=== PATIENT | male | born 1955 | race Caucasian/White ===

== ENCOUNTER 2019-04-29 08:00 | Observation (INO) ==
[2019-04-29] MEDS ORDERED: SODIUM CHLORIDE 0.9% 1,000 ML IV STA ×2 (09:01→09:59)
[2019-04-29 09:08] LABS: Basophils # 0.1 10*3/uL (0.0-0.2); Basophils % 0.8 % (0.0-0.8); Eosinophils # 0.2 10*3/uL (0.0-0.87); Hematocrit 39.3 VOL% (42.0-52.0); Hemoglobin 12.7 GM/DL (14.0-18.0); Immature Granulocytes % 0.3 %; Immature Granulocytes Absolute 0.02 #; Lymphocytes # 1.6 10*3/uL (1.4-4.0); Lymphocytes % 23.9 % (21.2-54.2); Mean Corpuscular HGB Conc 32.3 GM/DL (32-36); Mean Corpuscular Volume 96.8 FL (87-102); Mean Platelet Volume 10.8 FL (9.6-12.0); Monocytes % 8.4 % (1.7-12.7); Neutrophils % 63.6 % (38.7-73.9); Platelet Count 188 T/CUMM (130-400); Red Blood Count 4.06 MC/CUMM (3.8-5.5); Red Cell Distribution Width 14.4 % (9.3-17.3); White Blood Count 6.6 T/CUMM (4-12)
[2019-04-29 09:16] LABS: INR 1.1; PT Patient Result 11.8 SECS (9.6-12.2); Partial Thromboplastin Time 31.9 SECS (20.8-36.0)
[2019-04-29 09:32] LABS: Calcium 8.3 MG/DL (8.5-10.1); Osmolality,Calculated 274.8 MOS/KG (273-304)
[2019-04-29] MEDS ORDERED: KETOROLAC 30 MG/1 ML VIAL IV STA (10:07)
[2019-04-29] MEDS ORDERED: ZALEPLON 5 MG CAPSULE PO PRN (12:51)
[2019-04-29] MEDS ORDERED: diphenhydrAMINE CAP 25 MG CAPSULE PO PRN (12:51)
[2019-04-29] MEDS ORDERED: ONDANSETRON 4 MG/2 ML VIAL IV PRN (12:51)
[2019-04-29] MEDS ORDERED: oxyCODONE IR 5 MG TABLET PO PRN (12:51)
[2019-04-29] MEDS ORDERED: MORPHINE 4 MG/1 ML VIAL IV PRN (12:51)
[2019-04-29] MEDS ORDERED: LACTULOSE 20 GM/30 ML UDCUP PO PRN (12:51)
[2019-04-29] MEDS: NICOTINE 21 MG/24 HR PATCH TRANSDERM PRN (13:29)
[2019-04-29] MEDS: PANTOPRAZOLE 40 MG TABLET PO SCH (13:29)
[2019-04-29] MEDS: SODIUM CHLORIDE 0.9% 1,000 ML IV SCH ×2 (13:34→22:08)
[2019-04-29] MEDS ORDERED: RIVAROXABAN 20 MG TABLET PO SCH (21:00)
[2019-04-29] MEDS: OXYCODONE 30 MG PO PRN (21:17)
[2019-04-29] MEDS: buPROPion SR 150 MG TABLET PO SCH (21:18)
[2019-04-29] MEDS: CILOSTAZOL 100 MG TABLET PO SCH (21:18)
[2019-04-30] MEDS: SODIUM CHLORIDE 0.9% 1,000 ML IV SCH (06:15)
[2019-04-30 06:59] LABS: Blood Urea Nitrogen 14 MG/DL (7-18); Calcium 7.8 MG/DL (8.5-10.1); Estimated Glom Filtration Rate 74 ML/MIN; Glucose 71 MG/DL (74-106); Osmolality,Calculated 281.1 MOS/KG (273-304); Troponin I < 0.015 NG/ML (0.00-0.045)
[2019-04-30 07:05] LABS: Risk Ratio 2.71; VLDL CHOLESTEROL 10.4 MG/DL
[2019-04-30] MEDS: NICOTINE 21 MG/24 HR PATCH TRANSDERM PRN (08:26)
[2019-04-30] MEDS: buPROPion SR 150 MG TABLET PO SCH (08:27)
[2019-04-30] MEDS: CILOSTAZOL 100 MG TABLET PO SCH (08:27)
[2019-04-30] MEDS: PANTOPRAZOLE 40 MG TABLET PO SCH (08:27)
[2019-04-30] MEDS: OXYCODONE 30 MG PO PRN (08:44)
[2019-04-30] MEDS ORDERED: ASPIRIN EC 325 MG TABLET PO SCH (09:00)
[2019-04-30 14:20] VITALS: BP 100/78
== END 2019-04-30 15:20 | disposition home or self-care (01) ==
LOC: N.EDINP 08:00 → N.ED 08:00 → SUATTDRO 11:59 → N.CC 12:45 → N.TELEN 19:29
PROVIDERS: ADMIT Internal Medicine; ATTEND Family Medicine